=== PATIENT | male | born 1945 | race African-American/Black ===

== ENCOUNTER → 2017-01-25 | Outpatient (CLI) | payer MEDICARE, OTHER | LOC: OD 15:46 | PROVIDERS: ATTEND Urology | DX: N40.1 Benign prostatic hyperplasia with lower urinary tract symptoms (principal); E29.1 Testicular hypofunction; N52.8 Other male erectile dysfunction; F41.1 Generalized anxiety disorder | CPT/HCPCS: 36415; 84153 ==